=== PATIENT | male | born 1965 | race Caucasian/White ===

== ENCOUNTER 2019-04-30 14:10 | Outpatient (CLI) | payer BC ==
[~2019-04-30] VITALS: Ht 177.8 cm; Wt 83.9 kg
== END 2019-04-30 15:02 | disposition home or self-care (01) ==
LOC: PREOP 14:10
PROVIDERS: ATTEND Surgery
DX: Z01.818 Encounter for other preprocedural examination (principal)

== ENCOUNTER 2019-10-04 05:51 | Outpatient (CLI) | payer BC ==
[~2019-10-04] VITALS: Ht 172.7 cm; Wt 83.2 kg
[2019-10-07] MEDS ORDERED: ACHD5005 PO (09:30)
== END 2019-10-04 10:52 | disposition home or self-care (01) ==
LOC: PREOP 05:51
PROVIDERS: ATTEND Surgery
DX: Z01.818 Encounter for other preprocedural examination (principal)

== ENCOUNTER → 2021-05-11 | Outpatient (CLI) | payer BC ==
[~2021-05-11] MED LIST: ACHD5005 PO
[2021-05-11 13:48] LABS: ABSOLUTE RETIC # 60 10e9/uL (24-90); RETICULOCYTE % 1.37 % (0.50-2.40)
[2021-05-11 14:06] LABS: BAND NEUTROPHILS 0 %; BASOPHILS % (MANUAL) 3 %; EOSINOPHILS % (MANUAL) 2 %; LYMPHOCYTES % (MANUAL) 32 %; MONOCYTES % (MANUAL) 5 %; NEUTROPHILS % (MANUAL) 58 %; RBC MORPH NORMAL
== END ==
LOC: LABNPT 13:41
PROVIDERS: ATTEND Internal Medicine
DX: D72.819 Decreased white blood cell count, unspecified (principal)
CPT/HCPCS: 85007; 85045; 85055

== ENCOUNTER → 2021-08-29 | Outpatient (CLI) | payer BC ==
--- NOTE | 2021-08-29 15:56 | Diagnostic Imaging Report ---
Indication: Shortness of breath Comparison: 03/29/2014 Findings: Frontal and lateral views of the chest demonstrate clear lungs bilaterally. The heart is normal. There is no pneumothorax. Osseous structures normal. Impression: Negative chest Dictated by: Dictated on workstation # [id number]
== END ==
LOC: RAD 15:21
PROVIDERS: ATTEND Internal Medicine
DX: R06.00 Dyspnea, unspecified (principal); R06.02 Shortness of breath
CPT/HCPCS: 71046

== ENCOUNTER → 2021-09-05 | Outpatient (CLI) | payer BC ==
[~2021-09-05] MED LIST changes: +RT-ALBUTEROL SULF 2.5 MG/3 ML PRE-MIX VIAL INH ONE
== END ==
LOC: RT 09:15
PROVIDERS: ATTEND Internal Medicine
DX: G47.33 Obstructive sleep apnea (adult) (pediatric) (principal)
CPT/HCPCS: 94060; 94726; 94729

== ENCOUNTER 2023-01-04 16:47 | Inpatient (IN) | payer BC ==
[~2023-01-04] VITALS: Ht 175.3 cm; Wt 94.3 kg
[~2023-01-04 16:47] MED LIST changes: -RT-ALBUTEROL SULF 2.5 MG/3 ML PRE-MIX VIAL INH ONE
[2023-01-04] MEDS ORDERED: LACTATED RINGERS 1,000 ML IV ONE ×2 (17:00→18:00)
[2023-01-04 17:09] LABS: BASOPHILS # (AUTO) 0.1 10^3/uL (0.0-0.1); BASOPHILS % (AUTO) 1 % (0-10); EOSINOPHILS # (AUTO) 0.3 10^3/uL (0.0-0.3); EOSINOPHILS % (AUTO) 2 % (0-10); HEMATOCRIT 46 % (40-54); HEMOGLOBIN 15.9 g/dL (13.3-17.7); LYMPHOCYTES # (AUTO) 3.3 10^3/uL (1.0-4.0); LYMPHOCYTES % (AUTO) 23 % (12-44); MEAN CORPUSCULAR HEMOGLOBIN 29 pg (25-34); MEAN CORPUSCULAR HGB CONC 34 g/dL (32-36); MEAN CORPUSCULAR VOLUME 85 fL (80-99); MEAN PLATELET VOLUME 9.1 fL (9.0-12.2); MONOCYTES % (AUTO) 14 % (0-12); NEUTROPHILS # (AUTO) 8.2 10^3/uL (1.8-7.8); NEUTROPHILS % (AUTO) 59 % (42-75); PLATELET COUNT 298 10^3/uL (130-400)
[2023-01-04 17:20] LABS: ALBUMIN 4.2 GM/DL (3.2-4.5)
[2023-01-04 17:22] LABS: CALCIUM 9.3 MG/DL (8.5-10.1)
[2023-01-04 17:23] LABS: INR 1.1 (0.8-1.4); PROTHROMBIN TIME PATIENT 14.6 SEC (12.2-14.7); TOTAL PROTEIN 7.9 GM/DL (6.4-8.2)
[2023-01-04 17:25] LABS: BILIRUBIN,TOTAL 1.6 MG/DL (0.1-1.0)
[2023-01-04 17:27] LABS: CREATININE SERUM 1.33 MG/DL (0.60-1.30)
[2023-01-04] MEDS ORDERED: ONDANSETRON 4 MG/2 ML (SDV) Z0FRAN IVP ONE (17:30)
--- NOTE | 2023-01-04 17:58 | ED General ---
General Chief Complaint: Altered Mental Status Stated Complaint: HYPOGLYCEMIA Nursing Triage Note: PT TO ROOM BY [facility] FROM [facility]. PT STATES HE HAS BEEN SICK SINCE FRIDAY AND PT REPORTS INCREASED VOMITING AND ALTERED MENTAL STATUS STARTED TODAY. EMS REPORTS PT GLUCOSE AT [facility] WAS 59. PT HAS D10 RUNNING ON ARRIVAL. ARRIVAL GLUCOSE IS 134. PT IS A&OX3 ON ARRIVAL, SPEECH NORMAL Source of Information: Patient, EMS, Family Exam Limitations: Other (Clinical condition) (TREVER BUSH MD) History of Present Illness Date Seen by Provider: January 04, 2023 Time Seen by Provider: 16:48 Initial Comments This 57-year-old gentleman presents to the emergency room via EMS from the [facility] with concerns about altered mental status and tachycardia. Heart rate was noted to be in the 130s. Patient was confused. He has had vomiting and diarrhea for the past 3 to 4 days. He is afebrile. Blood sugar at the clinic was noted to be 59. On EMS arrival blood sugar was 89. A bag of D10 was hung by EMS. Blood sugar on arrival was 134. Patient is a poor historian at the time of my evaluation. His was not present yet. The majority of the history was obtained from EMS and from Cindy Diane NP at [facility]. His reportedly was trying to manage his symptoms at home but could not to lerate his symptoms and confusion. She intended to bring him to the ER but decided to stop at the walk-in clinic at [facility] along the way. He is not diabetic and does not take any glucose reducing medications. Nursing staff notes that patient is alert and oriented on their initial assessment. However, by my assessment he is not able to answer questions well and cognition seems very sluggish. He also has a rather profound systolic murmur on heart auscultation. Urine output has decreased significantly over the past couple of days. He reported sore throat to his . He has history of chronic anemia and takes levothyroxine. Patient denied any pain but he seemed to have difficulty articulating how he was feeling. (TREVER BUSH MD) Allergies and Home Medications Allergies Coded Allergies: No Known Drug Allergies (Unverified , 03/29/14) Patient Home Medication List Home Medication List Reviewed: Yes (TREVER BUSH MD) Hydrocodone Bit/Acetaminophen (Lortab 5 Mg Tablet) 1 Tab Tab, 1 TAB PO Q4-6HR Prescribed by: CLAUDIO RECIO on 10/07/19 6152 Review of Systems Review of Systems Constitutional: no symptoms reported EENTM: no symptoms reported Respiratory: no symptoms reported Cardiovascular: see HPI Gastrointestinal: see HPI Genitourinary: see HPI Musculoskeletal: no symptoms reported Skin: no symptoms reported Psychiatric/Neurological: See HPI Hematologic/Lymphatic: No Symptoms Reported Immunological/Allergic: no symptoms reported (TREVER BUSH MD) Past Dsncslx-Qobaaf-Chrzxn Hx Seasonal Allergies Seasonal Allergies: No (TREVER UBSH MD) Past Medical History Surgeries: Yes (undescended testicle) Respiratory: No Cardiac: No Neurological: No Genitourinary: No Gastrointestinal: No Musculoskeletal: No Endocrine: Yes Hypothyroidsim HEENT: No Cancer: No Psychosocial: No Integumentary: No Blood Disorders: No (TREVER BUSH MD) Physical Exam-Suspected Sepsis Physical Exam Vital Signs Vital Signs - First Documented 01/04/23 16:49 Temp 37.1 Pulse 125 Resp 25 B/P (MAP) 109/83 (92) Pulse Ox 96 (CHICA PHOENIX MD) Vital Signs Capillary Refill : (TREVER BUSH MD) Blood Pressure Mean: 92 Height, Weight, BMI Height: 5'10.00" Weight: 185lbs. 0.0oz. 83.466338vc; 30.00 BMI Method:Stated General Appearance: No Apparent Distress, WD/WN HEENT: PERRL/EOMI, Other (Mucous membranes dry) Neck: Normal Inspection Respiratory: Lungs Clear, Normal Breath Sounds, No Accessory Muscle Use Cardiovascular: No Edema, Systolic Murmur (Very loud systolic murmur), Tachycardia Gastrointestinal: Normal Bowel Sounds, Non Tender, Soft Extremity: Normal Inspection, No Pedal Edema Neurologic/Psychiatric: Alert, No Motor/Sensory Deficits, Other (Cognition dulled) Skin: normal color, warm/dry (TREVER BUSH MD) Focused Exam Lactate Level 01/04/23 16:54: Lactic Acid Level 2.88*H (CHICA PHOENIX MD) Lactic Acid Level Laboratory Tests Test 01/04/23 16:54 Lactic Acid Level 2.88 MMOL/L (0.50-2.00) *H (CHICA PHOENIX MD) Progress/Results/Core Measures Suspected Sepsis SIRS Temperature: Pulse: 125 Respiratory Rate: 25 Laboratory Tests 01/04/23 16:54: White Blood Count 14.0H Blood Pressure 109 /83 Mean: 92 01/04/23 16:54: Lactic Acid Level 2.88*H Laboratory Tests 01/04/23 16:54: Creatinine 1.33H, INR Comment 1.1, Platelet Count 298, Total Bilirubin 1.6H (TREVER BUSH MD) Results/Orders Lab Results Laboratory Tests Test 01/04/23 16:54 01/04/23 16:56 01/04/23 17:16 01/04/23 18:12 Range/Units White Blood Count 14.0 H 4.3-11.0 10^3/uL Red Blood Count 5.47 4.30-5.52 10^6/uL Hemoglobin 15.9 13.3-17.7 g/dL Hematocrit 46 40-54 % Mean Corpuscular Volume 85 80-99 fL Mean Corpuscular Hemoglobin 29 25-34 pg Mean Corpuscular Hemoglobin Concent 34 32-36 g/dL Red Cell Distribution Width 12.5 10.0-14.5 % Platelet Count 298 130-400 10^3/uL Mean Platelet Volume 9.1 9.0-12.2 fL Immature Granulocyte % (Auto) 1 % Neutrophils (%) (Auto) 59 42-75 % Lymphocytes (%) (Auto) 23 12-44 % Monocytes (%) (Auto) 14 H 0-12 % Eosinophils (%) (Auto) 2 0-10 % Basophils (%) (Auto) 1 0-10 % Neutrophils # (Auto) 8.2 H 1.8-7.8 10^3/uL Lymphocytes # (Auto) 3.3 1.0-4.0 10^3/uL Monocytes # (Auto) 2.0 H 0.0-1.0 10^3/uL Eosinophils # (Auto) 0.3 0.0-0.3 10^3/uL Basophils # (Auto) 0.1 0.0-0.1 10^3/uL Immature Granulocyte # (Auto) 0.1 0.0-0.1 10^3/uL Prothrombin Time 14.6 12.2-14.7 SEC INR Comment 1.1 0.8-1.4 Activated Partial Thromboplast Time 36 H 24-35 SEC Sodium Level 134 L 135-145 MMOL/L Potassium Level 4.0 3.6-5.0 MMOL/L Chloride Level 98 98-107 MMOL/L Carbon Dioxide Level 17 L 21-32 MMOL/L Anion Gap 19 H 5-14 MMOL/L Blood Urea Nitrogen 14 7-18 MG/DL Creatinine 1.33 H 0.60-1.30 MG/DL Estimat Glomerular Filtration Rate 63 BUN/Creatinine Ratio 11 Glucose Level 134 H 70-105 MG/DL Lactic Acid Level 2.88 *H 0.50-2.00 MMOL/L Calcium Level 9.3 8.5-10.1 MG/DL Corrected Calcium 9.1 8.5-10.1 MG/DL Magnesium Level 2.0 1.6-2.4 MG/DL Total Bilirubin 1.6 H 0.1-1.0 MG/DL Aspartate Amino Transf (AST/SGOT) 21 5-34 U/L Alanine Aminotransferase (ALT/SGPT) 14 0-55 U/L Alkaline Phosphatase 76 40-136 U/L Troponin I 0.557 *H <0.028 NG/ML C-Reactive Protein High Sensitivity 23.90 H 0.00-0.50 MG/DL B-Type Natriuretic Peptide 82.7 <100.0 PG/ML Total Protein 7.9 6.4-8.2 GM/DL Albumin 4.2 3.2-4.5 GM/DL Thyroid Stimulating Hormone (TSH) 0.00 L 0.35-4.94 UIU/ML Free Thyroxine 1.19 0.70-1.48 NG/DL Serum Alcohol < 10 <10 MG/DL Glucometer 134 H 70-110 MG/DL Group A Streptococcus Screen NEGATIVE NEGATIVE Influenza Type A (RT-PCR) Not Detected Not Detecte Influenza Type B (RT-PCR) Not Detected Not Detecte SARS-CoV-2 RNA (RT-PCR) Not Detected Not Detecte Test 01/04/23 19:06 Range/Units Urine Color YELLOW Urine Clarity CLEAR Urine pH 6.0 5-9 Urine Specific [employer] >=1.030 1.016-1.022 Urine Protein 2+ H NEGATIVE Urine Glucose (UA) NEGATIVE NEGATIVE Urine Ketones 3+ H NEGATIVE Urine Nitrite NEGATIVE NEGATIVE Urine Bilirubin 2+ H NEGATIVE Urine Urobilinogen 1.0 < = 1.0 MG/DL Urine Leukocyte Esterase NEGATIVE NEGATIVE Urine RBC (Auto) 3+ H NEGATIVE Urine RBC 10-25 H /HPF Urine WBC RARE /HPF Urine Squamous Epithelial Cells NONE /HPF Urine Crystals PRESENT H /LPF Urine Amorphous Sediment FEW JUAN LUIS URATES H /LPF Urine Bacteria FEW H /HPF Urine Casts PRESENT /LPF Urine Hyaline Casts 5-10 H /LPF Urine Mucus MODERATE H /LPF Urine Culture Indicated CULTURE PENDING Urine Opiates Screen NEGATIVE NEGATIVE Urine Oxycodone Screen NEGATIVE NEGATIVE Urine Methadone Screen NEGATIVE NEGATIVE Urine Propoxyphene Screen NEGATIVE NEGATIVE Urine Barbiturates Screen NEGATIVE NEGATIVE Ur Tricyclic Antidepressants Screen NEGATIVE NEGATIVE Urine Phencyclidine Screen NEGATIVE NEGATIVE Urine Amphetamines Screen NEGATIVE NEGATIVE Urine Methamphetamines Screen NEGATIVE NEGATIVE Urine Benzodiazepines Screen NEGATIVE NEGATIVE Urine Cocaine Screen NEGATIVE NEGATIVE Urine Cannabinoids Screen NEGATIVE NEGATIVE (CHICA PHOENIX MD) My Orders Orders - CHICA PHOENIX MD Bnp [place] (01/04/23 18:30) Troponin I Diomedes (01/04/23 18:30) Ct Head Wo (01/04/23 18:47) Catheter(Urinary) Insert & Ass 03,15 (01/04/23 18:47) Lidocaine 2% (Urojet) (Xylocaine Urojet) (01/04/23 19:00) Ekg Tracing (01/04/23 19:01) Monitor-Rhythm Ecg Trace Only (01/04/23 19:01) Aspirin Chewable Tablet (Baby Aspirin Ch (01/04/23 19:15) Aspirin Chewable Tablet (Baby Aspirin Ch (01/04/23 19:07) Enoxaparin Injection (Lovenox Injection) (01/04/23 19:15) (CHICA PHOENIX MD) Medications Given in ED Current Medications Medications Dose Ordered Sig/Kaila Route Start Time Stop Time Status Last Admin Dose Admin Aspirin 324 mg ONCE ONCE PO 01/04/23 19:15 01/04/23 19:16 DC 01/04/23 19:10 324 MG Enoxaparin Sodium 90 mg ONCE ONCE SC 01/04/23 19:15 01/04/23 19:16 DC 01/04/23 19:36 90 MG Lactated Ringer's 1,000 ml @ 0 mls/hr Q0M ONCE IV 01/04/23 17:00 01/04/23 17:01 DC 01/04/23 17:32 999 MLS/HR Lactated Ringer's 1,000 ml @ 0 mls/hr Q0M ONCE IV 01/04/23 18:00 01/04/23 18:01 DC 01/04/23 18:28 999 MLS/HR Lidocaine HCl 10 ml ONCE ONCE TOP 01/04/23 19:00 01/04/23 19:01 DC 01/04/23 19:05 10 ML Ondansetron HCl 4 mg ONCE ONCE IVP 01/04/23 17:30 01/04/23 17:31 DC 01/04/23 17:31 4 MG (CHICA PHOENIX MD) Vital Signs/I&O 01/04/23 16:49 Temp 37.1 Pulse 125 Resp 25 B/P (MAP) 109/83 (92) Pulse Ox 96 (HCICA PHOENIX MD) Vital Signs/I&O Capillary Refill : (TREVER BUSH MD) Blood Pressure Mean: 92 Point of Care Testing Finger Stick Blood Glucose: 134 Blood Glucose Action Taken: DR NOTIFIED (TREVER BUSH MD) Progress Note : Time: 18:06 Progress Note Report was taken from EMS and patient was interviewed and examined. I received report from Kiersten Diane NP from the clinic. On arrival patient was found to be tachycardic. He was alert but seemed confused. A bag of D10 was infusing as initiated by EMS. We are hydrating with LR. Septic work-up is being pursued. Labs have been reviewed and interpreted by me. CBC was remarkable for leukocytosis of 14. CRP was markedly elevated at 24. CO2 was low at 17. Lact ic acid was elevated at 2.88. Influenza and COVID-19 swabs are pending. Rapid strep was negative. Thyroid studies are pending. Zofran was given for nausea. Care of this patient is being transitioned to Dr. Phoenix at this time. (TREVER BUSH MD) Progress Note : Progress Note Labs have come back, troponin is elevated at 0.55, EKG ordered and ordered and interpreted by me showing sinus tachycardia with no acute ischemic changes, normal BNP, urinalysis with blood, it was likely traumatic specimen as a Kowalski needed to be placed within retaining. Chest x-ray with no acute abnormalities. CT head, interpretation with no acute bleed. I contacted Dr. Belcher and discussed the patient's case. The patient was given full dose aspirin as well as Lovenox per his direction. The patient will require an echocardiogram. I then contacted Dr. Rapp who will admit him to the cardiac stepdown for further evaluation and management. (CHICA PHOENIX MD) ECG Initial ECG Impression Date: January 04, 2023 Initial ECG Impression Time: 19:10 Initial ECG Rate: 114 Initial ECG Rhythm: S.Tach Comment Narrow QRS, normal axis, no significant ST changes or T wave inversions (CHIAC PHOENIX MD) Diagnostic Imaging Diagonstic Imaging: Xray Plain Films/CT/US/NM/MRI: chest Comments Chest x-ray viewed by me. No acute abnormalities by my interpretation. Radiologist interpretation is pending. (TREVER BUSH MD) Comments [facility] [place], [place] NAME: SELVIN STEWART [facility] REC#: [id number] PT STATUS: REG ER : 1965 PHYSICIAN: TREVER BUSH MD ADMIT DATE: 01/04/23/ER Draft Date of Exam:01/04/23 CHEST 1 VIEW, AP/PA ONLY INDICATION: Tachycardia . COMPARISON: 08/29/2021. FINDINGS: Single frontal view of the chest demonstrates normal heart size and pulmonary vascularity. The lungs are well aerated and clear. No large pleural effusion or pneumothorax is seen. The visualized osseous structures show no acute abnormality. IMPRESSION: No acute cardiopulmonary process. Dictated on workstation # [id number] Dict: 01/04/231809 Trans: 01/04/231817 [facility] [id number] Interpreted by: ARELI GANDHI MD Electronically signed by: NAME: SELVIN STEWART [employer] REC#: [id number] PT STATUS: REG ER : 1965 PHYSICIAN: CHICA PHOENIX MD ADMIT DATE: 01/04/23/ER Draft Date of Exam:01/04/23 CT HEAD WO PROCEDURE: CT head without contrast. TECHNIQUE: Multiple contiguous axial images were obtained through the brain without the use of intravenous contrast. Auto Exposure Controls were utilized during the CT exam to meet ALARA standards for radiation dose reduction. INDICATION: Altered mental status, confusion, prior pituitary adenoma removed. COMPARISON: None available. FINDINGS: No intracranial hemorrhage. Mild cerebral atrophy with moderate cerebellar atrophy. The sella is expanded. The majority of the sella is filled with CSF density fluid. However, densities are noted along the bilateral lateral margins of the sella. No significant adjacent mass effect. No midline shift, uncal herniation, obstructive hydrocephalus or suspicious extra-axial fluid collection. No CT evidence of an acute ischemic infarction. The orbits are unremarkable. Moderate mucosal thickening and fluid within scattered ethmoidal air cells. Mucosal thickening and fluid within the sphenoid sinuses. Moderate mucosal thickening and fluid within the left maxillary sinus. The mastoid air cells and middle ear cavities are clear. The calvarium is intact. IMPRESSION: Mild cerebral atrophy with moderate cerebellar atrophy. Postsurgical changes involving the sella with expansion of the sella. Soft tissue along the lateral margins of the sella may relate to residual tumor versus the vasculature within the cavernous sinuses. Significant paranasal sinus disease, as above. Given some layering fluid, acute sinusitis should be considered. Dictated on workstation # [id number] Dict: 01/04/231923 Trans: 01/04/231932 [facility] [id number] Interpreted by: SEGUNDO LYNN MD Electronically signed by: (CHICA PHOENIX MD) Departure Impression Primary Impression: NSTEMI (non-ST elevated myocardial infarction) Additional Impressions: AMS (altered mental status) Qualified Codes: R41.0 - Disorientation, unspecified Systolic murmur Disposition: ADMITTED INPATIENT Condition: Stable Admissions Decision to Admit Reason: Admit from ER (General) Decision to Admit/Date: January 04, 2023 Time/Decision to Admit Time: 19:15 (CHICA PHOENIX MD) Departure-Patient Inst. Referrals: ELIAN MAHMOOD MD (PCP/Family) Primary Care Physician TREVER BUSH MD January 04, 2023 17:58 CHICA PHOENIX MD January 04, 2023 18:28
--- NOTE | 2023-01-04 18:18 | Diagnostic Imaging Report ---
INDICATION: Tachycardia . COMPARISON: 08/29/2021. FINDINGS: Single frontal view of the chest demonstrates normal heart size and pulmonary vascularity. The lungs are well aerated and clear. No large pleural effusion or pneumothorax is seen. The visualized osseous structures show no acute abnormality. IMPRESSION: No acute cardiopulmonary process. Dictated by: Dictated on workstation # [id number]
[2023-01-04 18:38] LABS: FREE T4 (FREE THYROXINE) 1.19 NG/DL (0.70-1.48)
[2023-01-04] MEDS ORDERED: LIDOCAINE UROJET 2% GEL 10 ML PKG TOP ONE (19:00)
[2023-01-04] MEDS ORDERED: ASPIRIN 81 MG CHEW (CHILDREN'S ASA) ONE (19:07)
[2023-01-04 19:13] LABS: BILIRUBIN,URINE 2+ (NEGATIVE); CLARITY,URINE CLEAR; COLOR,URINE YELLOW; GLUCOSE, URINE (UA) NEGATIVE (NEGATIVE); KETONES,URINE 3+ (NEGATIVE); LEUKOCYTE ESTERASE ,URINE NEGATIVE (NEGATIVE); NITRITE,URINE NEGATIVE (NEGATIVE); PROTEIN,URINE 2+ (NEGATIVE)
[2023-01-04] MEDS ORDERED: ASPIRIN 81 MG CHEW (CHILDREN'S ASA) PO ONE (19:15)
[2023-01-04] MEDS ORDERED: ENOXAPARIN 100 MG/1 ML (LOVENOX) SYR SC ONE (19:15)
[2023-01-04 19:29] LABS: AMORPHOUS SEDIMENT,UR FEW AMOR URATES /LPF; BACTERIA,URINE FEW /HPF; WBC,URINE RARE /HPF
[2023-01-04 19:31] LABS: AMPHETAMINE SCREEN, URINE NEGATIVE (NEGATIVE); BARBITURATE SCREEN URINE NEGATIVE (NEGATIVE); BENZODIAZEPINES SCREEN URINE NEGATIVE (NEGATIVE); CANNABINOID SCREEN, URINE NEGATIVE (NEGATIVE); COCAINE SCREEN URINE NEGATIVE (NEGATIVE); METHADONE STAT NEGATIVE (NEGATIVE); OPIATE SCREEN URINE NEGATIVE (NEGATIVE); OXYCODONE STAT NEGATIVE (NEGATIVE); PROPOXYPHENE STAT NEGATIVE (NEGATIVE); TRICYCLIC ANTIDEPRESSANTS SCRE NEGATIVE (NEGATIVE)
--- NOTE | 2023-01-04 19:33 | Diagnostic Imaging Report ---
PROCEDURE: CT head without contrast. TECHNIQUE: Multiple contiguous axial images were obtained through the brain without the use of intravenous contrast. Auto Exposure Controls were utilized during the CT exam to meet ALARA standards for radiation dose reduction. INDICATION: Altered mental status, confusion, prior pituitary adenoma removed. COMPARISON: None available. FINDINGS: No intracranial hemorrhage. Mild cerebral atrophy with moderate cerebellar atrophy. The sella is expanded. The majority of the sella is filled with CSF density fluid. However, densities are noted along the bilateral lateral margins of the sella. No significant adjacent mass effect. No midline shift, uncal herniation, obstructive hydrocephalus or suspicious extra-axial fluid collection. No CT evidence of an acute ischemic infarction. The orbits are unremarkable. Moderate mucosal thickening and fluid within scattered ethmoidal air cells. Mucosal thickening and fluid within the sphenoid sinuses. Moderate mucosal thickening and fluid within the left maxillary sinus. The mastoid air cells and middle ear cavities are clear. The calvarium is intact. IMPRESSION: Mild cerebral atrophy with moderate cerebellar atrophy. Postsurgical changes involving the sella with expansion of the sella. Soft tissue along the lateral margins of the sella may relate to residual tumor versus the vasculature within the cavernous sinuses. Significant paranasal sinus disease, as above. Given some layering fluid, acute sinusitis should be considered. Dictated by: Dictated on workstation # [id number]
[2023-01-04 20:53] VITALS: BP 119/82
[2023-01-04] MEDS ORDERED: ACETAMINOPHEN 500 MG TAB (TYLENOL) PO PRN (21:15)
[2023-01-04] MEDS ORDERED: ONDANSETRON 4 MG/2 ML (SDV) Z0FRAN IV PRN (21:15)
[2023-01-04 21:39] VITALS: BP 109/83
[2023-01-04] MEDS ORDERED: RT-ALBUTEROL SULF 2.5 MG/3 ML PRE-MIX VIAL INH PRN (22:00)
[2023-01-04] MEDS: CATHETER FLUSH 10 ML SYR IVP SCH (22:13)
[2023-01-04 23:00] VITALS: BP 102/80
[2023-01-05] VITALS (12 sets, daily range): BP systolic 101–122; BP diastolic 73–94
[2023-01-05 05:17] LABS: POTASSIUM 3.8 MMOL/L (3.6-5.0)
[2023-01-05 05:18] LABS: CALCIUM 8.8 MG/DL (8.5-10.1)
[2023-01-05 05:23] LABS: CREATININE SERUM 0.86 MG/DL (0.60-1.30)
[2023-01-05] MEDS: ENOXAPARIN 100 MG/1 ML (LOVENOX) SYR SC SCH ×2 (06:30→19:47)
[2023-01-05] MEDS: LEVOTHYROXINE 125 MCG (LEVOTHROID) TABLET PO SCH (06:30)
[2023-01-05] MEDS: CATHETER FLUSH 10 ML SYR IVP SCH ×3 (06:30→19:48)
--- NOTE | 2023-01-05 08:33 | Consultation-Cardiology ---
HPI-Cardiology Cardiology Consultation Date of Consultation 01/05/23 Date of Admission Time Seen by Provider: 08:27 Indication: Non-ST elevation myocardial infarction HPI 57-year-old gentleman with history of pituitary tumor, history of resection of the tumor done 2 years ago at . Hypothyroidism maintained on thyroid and prednisone. He became confused yesterday. Brought to the emergency room for evaluation he was noted to have elevation in troponin level. He denied any chest pain, no shortness of breath, his mental status is back to baseline. Incidentally he was noted to have systolic murmur Home Medications & Allergies Allergies: Coded Allergies: No Known Drug Allergies (Unverified , 03/29/14) Home Medication List Reviewed: Yes AEG-Uvwciv-Hianoq Hx Patient Social History Marital Status: Employed/Student: employed Smoking Status: Never a Smoker Recent Hopitalizations: No Have you traveled recently?: No Alcohol Use?: No Past Medical History Discussed below Family Medical History Significant Family History: No Pertinent Family Hx Review of Systems-General Review of Systems Constitutional: no symptoms reported EENTM: no symptoms reported Respiratory: no symptoms reported Cardiovascular: see HPI Gastrointestinal: see HPI Genitourinary: see HPI Musculoskeletal: no symptoms reported Skin: no symptoms reported Psychiatric/Neurological: See HPI Reviewed Test Results Reviewed Test Results Lab Laboratory Tests Test 01/04/23 16:54 01/04/23 16:56 01/04/23 17:16 01/04/23 18:12 Range/Units White Blood Count 14.0 H 4.3-11.0 10^3/uL Red Blood Count 5.47 4.30-5.52 10^6/uL Hemoglobin 15.9 13.3-17.7 g/dL Hematocrit 46 40-54 % Mean Corpuscular Volume 85 80-99 fL Mean Corpuscular Hemoglobin 29 25-34 pg Mean Corpuscular Hemoglobin Concent 34 32-36 g/dL Red Cell Distribution Width 12.5 10.0-14.5 % Platelet Count 298 130-400 10^3/uL Mean Platelet Volume 9.1 9.0-12.2 fL Immature Granulocyte % (Auto) 1 % Neutrophils (%) (Auto) 59 42-75 % Lymphocytes (%) (Auto) 23 12-44 % Monocytes (%) (Auto) 14 H 0-12 % Eosinophils (%) (Auto) 2 0-10 % Basophils (%) (Auto) 1 0-10 % Neutrophils # (Auto) 8.2 H 1.8-7.8 10^3/uL Lymphocytes # (Auto) 3.3 1.0-4.0 10^3/uL Monocytes # (Auto) 2.0 H 0.0-1.0 10^3/uL Eosinophils # (Auto) 0.3 0.0-0.3 10^3/uL Basophils # (Auto) 0.1 0.0-0.1 10^3/uL Immature Granulocyte # (Auto) 0.1 0.0-0.1 10^3/uL Prothrombin Time 14.6 12.2-14.7 SEC INR Comment 1.1 0.8-1.4 Activated Partial Thromboplast Time 36 H 24-35 SEC Sodium Level 134 L 135-145 MMOL/L Potassium Level 4.0 3.6-5.0 MMOL/L Chloride Level 98 98-107 MMOL/L Carbon Dioxide Level 17 L 21-32 MMOL/L Anion Gap 19 H 5-14 MMOL/L Blood Urea Nitrogen 14 7-18 MG/DL Creatinine 1.33 H 0.60-1.30 MG/DL Estimat Glomerular Filtration Rate 63 BUN/Creatinine Ratio 11 Glucose Level 134 H 70-105 MG/DL Lactic Acid Level 2.88 *H 0.50-2.00 MMOL/L Calcium Level 9.3 8.5-10.1 MG/DL Corrected Calcium 9.1 8.5-10.1 MG/DL Magnesium Level 2.0 1.6-2.4 MG/DL Total Bilirubin 1.6 H 0.1-1.0 MG/DL Aspartate Amino Transf (AST/SGOT) 21 5-34 U/L Alanine Aminotransferase (ALT/SGPT) 14 0-55 U/L Alkaline Phosphatase 76 40-136 U/L Troponin I 0.557 *H <0.028 NG/ML C-Reactive Protein High Sensitivity 23.90 H 0.00-0.50 MG/DL B-Type Natriuretic Peptide 82.7 <100.0 PG/ML Total Protein 7.9 6.4-8.2 GM/DL Albumin 4.2 3.2-4.5 GM/DL Thyroid Stimulating Hormone (TSH) 0.00 L 0.35-4.94 UIU/ML Free Thyroxine 1.19 0.70-1.48 NG/DL Serum Alcohol < 10 <10 MG/DL Glucometer 134 H 70-110 MG/DL Group A Streptococcus Screen NEGATIVE NEGATIVE Influenza Type A (RT-PCR) Not Detected Not Detecte Influenza Type B (RT-PCR) Not Detected Not Detecte SARS-CoV-2 RNA (RT-PCR) Not Detected Not Detecte Test 01/04/23 19:06 01/04/23 20:03 01/05/23 04:45 01/05/23 07:28 Range/Units Urine Color YELLOW Urine Clarity CLEAR Urine pH 6.0 5-9 Urine Specific [place] >=1.030 1.016-1.022 Urine Protein 2+ H NEGATIVE Urine Glucose (UA) NEGATIVE NEGATIVE Urine Ketones 3+ H NEGATIVE Urine Nitrite NEGATIVE NEGATIVE Urine Bilirubin 2+ H NEGATIVE Urine Urobilinogen 1.0 < = 1.0 MG/DL Urine Leukocyte Esterase NEGATIVE NEGATIVE Urine RBC (Auto) 3+ H NEGATIVE Urine RBC 10-25 H /HPF Urine WBC RARE /HPF Urine Squamous Epithelial Cells NONE /HPF Urine Crystals PRESENT H /LPF Urine Amorphous Sediment FEW JUAN LUIS URATES H /LPF Urine Bacteria FEW H /HPF Urine Casts PRESENT /LPF Urine Hyaline Casts 5-10 H /LPF Urine Mucus MODERATE H /LPF Urine Culture Indicated CULTURE PENDING Urine Opiates Screen NEGATIVE NEGATIVE Urine Oxycodone Screen NEGATIVE NEGATIVE Urine Methadone Screen NEGATIVE NEGATIVE Urine Propoxyphene Screen NEGATIVE NEGATIVE Urine Barbiturates Screen NEGATIVE NEGATIVE Ur Tricyclic Antidepressants Screen NEGATIVE NEGATIVE Urine Phencyclidine Screen NEGATIVE NEGATIVE Urine Amphetamines Screen NEGATIVE NEGATIVE Urine Methamphetamines Screen NEGATIVE NEGATIVE Urine Benzodiazepines Screen NEGATIVE NEGATIVE Urine Cocaine Screen NEGATIVE NEGATIVE Urine Cannabinoids Screen NEGATIVE NEGATIVE Lactic Acid Level 1.95 0.50-2.00 MMOL/L Sodium Level 135 135-145 MMOL/L Potassium Level 3.8 3.6-5.0 MMOL/L Chloride Level 105 98-107 MMOL/L Carbon Dioxide Level 15 L 21-32 MMOL/L Anion Gap 15 H 5-14 MMOL/L Blood Urea Nitrogen 12 7-18 MG/DL Creatinine 0.86 0.60-1.30 MG/DL Estimat Glomerular Filtration Rate 102 BUN/Creatinine Ratio 14 Glucose Level 86 70-105 MG/DL Calcium Level 8.8 8.5-10.1 MG/DL Troponin I 0.699 *H <0.028 NG/ML Physical Exam Physical Exam Vital Signs Vital Signs - First Documented 01/04/23 01/04/23 01/04/23 16:49 20:53 21:39 Temp 37.1 Pulse 125 Resp 25 B/P (MAP) 109/83 (92) Pulse Ox 96 O2 Delivery Room Air FiO2 21 Capillary Refill : Height, Weight, BMI Height: 5'10.00" Weight: 185lbs. 0.0oz. 83.324602ia; 30.88 BMI Method:Stated General Appearance: No Apparent Distress, WD/WN HEENT: PERRL/EOMI, Other Neck: Normal Inspection Respiratory: Lungs Clear, Normal Breath Sounds, No Accessory Muscle Use Cardiovascular: No Edema, Systolic Murmur, Tachycardia Gastrointestinal: Normal Bowel Sounds, Non Tender, Soft Extremity: Normal Inspection, No Pedal Edema Neurologic/Psychiatric: Alert, No Motor/Sensory Deficits, Other A/P-Cardiology Admission Diagnosis Non-ST elevation myocardial infarction Coronary artery disease Sinus tachycardia Pituitary tumor Assessment/Plan Non-ST elevation myocardial infarction, no acute EKG changes, persistent elevation in troponin trending upward. I am planning to proceed with cardiac catheterization possible PTCA Sinus tachycardia, could be underlying sepsis I am planning to evaluate CT angiogram of the chest Systolic murmur on the left sternal border, no previous cardiac history. I will evaluate 2D echo Lactic acidosis, questionable underlying sepsis. Managed by medical team Change in mental status, confusion. Patient does not recall the event well. Currently back to baseline History of pituitary tumor, had resection done 2 years ago at . Maintained on prednisone History of hypothyroidism, maintained on thyroid replacement ALBERTO TOUSSAINT MD January 05, 2023 08:33
[2023-01-05] MEDS: NS IV 1000 ML 1,000 ML IV SCH ×5 (08:40→21:31)
[2023-01-05] MEDS ORDERED: LIDOCAINE 1% INJ 20 ML VIAL ONE (08:45)
[2023-01-05] MEDS ORDERED: HEParin (CATH LAB) 2,000 ML IV ONE (08:46)
[2023-01-05] MEDS ORDERED: NS IV 1000 ML 0 ML ONE (08:46)
--- NOTE | 2023-01-05 08:49 | Cardiac Procedure Note-CS/ASA ---
Pre-Procedure Note Pre-Op Procedure Note Date of Available H&P: January 05, 2023 Date H&P Reviewed: January 05, 2023 Time H&P Reviewed: 08:49 History & Physical: H&P Reviewed, Patient Examed, No changes noted Pre-Operative Diagnosis: NSTMI Moderate Sedation PreProcedure Time 08:49 ASA Score 3 Airway Lungs Heart ASA score ASA 1: a normal healthy patient ASA 2: a patient with a mild systemic disease (mid diabetes, controlled hypertension, obesity ASA 3: a patient with a severe systemic disease that limits activity (angina, COPD, prior Myocardial infarction) ASA 4: a patient with an incapacitating disease that is a constant threat to life (CHF, renal failure) ASA 5: a moribund patient not expected to survive 24 hrs. (ruptured aneurysm) ASA 6: a declared brain- patient whose organs are being harvested. For emergent operations, add the letter E after the classification Mallampati Classification Grade 3 Sedation Plan Analgesia, Amnesia, Plan communicated to team members, Discussed options with patient/fam, Discussed risks with patient/fam The patient is an appropriate candidate to undergo the planned procedure, sedation, and anesthesia. The patient immediately re-assessed prior to indication. ALBERTO TOUSSAINT MD January 05, 2023 08:49
[2023-01-05] MEDS ORDERED: HEParin 1000 UNIT/ML (10ML VIAL) FOR BOLUS ONE (08:55)
[2023-01-05] MEDS ORDERED: NITRO DRIP 25000 MCG/D5W 250 ML IV ONE (08:55)
[2023-01-05] MEDS ORDERED: fentaNYL INJ 100 MCG/2 ML AMP ONE (08:55)
[2023-01-05] MEDS ORDERED: MIDAZOLAM 5 MG/5 ML (VERSED) VIAL ONE (08:55)
[2023-01-05] MEDS ORDERED: VERAPAMIL 5 MG/2 ML (CALAN) VIAL IV ONE (08:55)
[2023-01-05] MEDS: ASPIRIN E.C. 81 MG (ECOTRIN) TAB PO SCH ×2 (09:01→11:05)
--- NOTE | 2023-01-05 09:23 | History & Physical-Hospitalist ---
History of Present Illness HPI/Chief Complaint Patient is a 57-year-old male with past medical history of pituitary adenoma status postresection and secondary hypothyroidism who presented to the emergency department due to altered mental status vomiting and murmur. His gives most of the history and states that his symptoms started roughly 3 days ago when he complained of a sore throat and he ended up staying home from work on the because of this. He stayed home again from work on the and his reports that this is very abnormal for him because he has important meetings on Fridays that he almost never misses and this was a Friday. Yesterday he continued to worsen and had poor oral intake and she noticed decreased urinary output as well. She wanted to bring him to the emergency department but he asked to be seen in a walk-in clinic so she went to [facility] for evaluation. She went in to get him checked in and when they came back to get him with a wheelchair he had vomited all over himself. They deny any fever or vomiting prior to that. The nurse practitioner at [facility] listened to him and noticed a systolic murmur which they report is new. He was sent to the emergency department for evaluation. He was also found to be hypoglycemic with a blood sugar of 59. EMS gave him dextrose in route. In the emergency room he remained slow to answer though was oriented to most things. He was found to have an elevated troponin of 0.557 and exam again revealed this new systolic murmur. He was admitted for cardiac evaluation. He was found as well to have an LANETTE and lactic acidosis presumably from dehydration. He was given IV fluids overnight. This morning he reports feeling much better and though not back to his baseline very close to it. He states he is mostly just tired today. He is going to [facility] for further cardiac evaluation. Source: patient, family Date Seen 01/05/23 Time Seen by a Provider: 09:22 Attending Physician Caleb Dai MD PCP Admitting Physician: Ken Pathak MD Attending Physician: Ken Pathak MD Referring Physician Date of Admission January 04, 2023 at 20:48 Home Medications & Allergies Home Medications Reviewed patient Home Medication Reconciliation performed by pharmacy medication reconciliations optomechanical technician and/or nursing. Patients Allergies have been reviewed. Allergies Allergies Coded Allergies No Known Drug Allergies (Unverified03/29/14) Past Lfcnsny-Zttyhb-Gytwif Hx Patient Social History Marrital Status: Employed/Student: employed Tobacco Use?: No Smoking Status: Never a Smoker Smokeless Tobacco Frequency: Never a User Use of E-Cig and/or Vaping dev: No Substance use?: No Alcohol Use?: No Pt feels they are or have been: No Immunizations Up To Date Tetanus Booster (TDap): Less Than 5 Years Hepatitis A: No Hepatitis B: No Seasonal Allergies Seasonal Allergies: No Current Status Advance Directives: No Communicates: Verbally Primary Language: Pashto Preferred Spoken Language: Pashto Is interpretation needed?: No Sensory deficits: Vision impairment Implanted or Applied Medical D: None Past Medical History Hypothyroidsim Blood Disorders: No Family Medical History No Pertinent Family Hx Review of Systems Constitutional: see HPI Physical Exam Physical Exam Vital Signs Vital Signs - First Documented 01/04/23 01/04/23 01/04/23 01/05/23 16:49 20:53 21:39 09:27 Temp 37.1 Pulse 125 Resp 25 B/P (MAP) 109/83 (92) Pulse Ox 96 O2 Delivery Room Air O2 Flow Rate 0.00 FiO2 21 Capillary Refill : Height, Weight, BMI Height: 5'10.00" Weight: 185lbs. 0.0oz. 83.685621rs; 30.88 BMI Method:Stated General Appearance: No Apparent Distress, WD/WN Respiratory: Lungs Clear, No Accessory Muscle Use, No Respiratory Distress Cardiovascular: Normal Peripheral Pulses, Systolic Murmur, Tachycardia Gastrointestinal: Normal Bowel Sounds, Non Tender, Soft Extremity: Normal Capillary Refill, No Calf Tenderness Neurologic/Psychiatric: Alert, Oriented x3 (oriented to major details- defers to family for details regarding HPI) Results Results/Procedures Labs Laboratory Tests 01/04/23 16:54 01/05/23 04:45 Patient resulted labs reviewed. Imaging: Reviewed Imaging Report Imaging [facility], [place] NAME: SELVIN STEWART [facility] REC#: [id number] PT STATUS: REG ER : 1965 PHYSICIAN: TREVER BUSH MD ADMIT DATE: 01/04/23/ER Signed Date of Exam:01/04/23 CHEST 1 VIEW, AP/PA ONLY INDICATION: Tachycardia . COMPARISON: 08/29/2021. FINDINGS: Single frontal view of the chest demonstrates normal heart size and pulmonary vascularity. The lungs are well aerated and clear. No large pleural effusion or pneumothorax is seen. The visualized osseous structures show no acute abnormality. IMPRESSION: No acute cardiopulmonary process. Dictated by: Dictated on workstation # [id number] Dict: 01/04/231809 Trans: 01/04/231944 [facility] [id number] Interpreted by: ARELI GANDHI MD Electronically signed by: ARELI GANDHI MD 01/04/231944 [facility], [place] NAME: SELVIN STEWART [facility] REC#: [id number] PT STATUS: REG ER : 1965 PHYSICIAN: CHICA PHOENIX MD ADMIT DATE: 01/04/23/ER Signed Date of Exam:01/04/23 CT HEAD WO PROCEDURE: CT head without contrast. TECHNIQUE: Multiple contiguous axial images were obtained through the brain without the use of intravenous contrast. Auto Exposure Controls were utilized during the CT exam to meet ALARA standards for radiation dose reduction. INDICATION: Altered mental status, confusion, prior pituitary adenoma removed. COMPARISON: None available. FINDINGS: No intracranial hemorrhage. Mild cerebral atrophy with moderate cerebellar atrophy. The sella is expanded. The majority of the sella is filled with CSF density fluid. However, densities are noted along the bilateral lateral margins of the sella. No significant adjacent mass effect. No midline shift, uncal herniation, obstructive hydrocephalus or suspicious extra-axial fluid collection. No CT evidence of an acute ischemic infarction. The orbits are unremarkable. Moderate mucosal thickening and fluid within scattered ethmoidal air cells. Mucosal thickening and fluid within the sphenoid sinuses. Moderate mucosal thickening and fluid within the left maxillary sinus. The mastoid air cells and middle ear cavities are clear. The calvarium is intact. IMPRESSION: Mild cerebral atrophy with moderate cerebellar atrophy. Postsurgical changes involving the sella with expansion of the sella. Soft tissue along the lateral margins of the sella may relate to residual tumor versus the vasculature within the cavernous sinuses. Significant paranasal sinus disease, as above. Given some layering fluid, acute sinusitis should be considered. Dictated by: Dictated on workstation # [id number] Dict: 01/04/231923 Trans: 01/04/231945 [facility] [id number] Interpreted by: SEGUNDO LYNN MD Electronically signed by: SEGUNDO LYNN MD 01/04/231945 Assessment/Plan Admission Diagnosis NSTEMI Admission Status: Inpatient Order (span 2 midnights) Reason for Inpatient Admission: see below Assessment and Plan NSTEMI New systolic murmur sinus tachycardia Troponin trended up Plan for cardiac cath today Echo ordered Telemetry Cardiology consulted, appreciate recs CTA ordered to evaluate for PE- on therapeutic lovenox already Discussed with Dr Belcher AMS- resolved Fever- resoled Resolved CT head negative, CXR negative, UA not indicative of infection Not consistent with meningitis Will stress dose steroids Did have mild leukocytosis of 14 but just after vomiting so likely reactive, repeat today Rapid strep negative last night LANETTE- resolved Dehydration Lactic elevated on arrival but resolved Creatinine elevated and spec grav .1.030 with 3+ ketones in urine Continue IVF h/o pituitary adenoma and resection hypothyroidism Continue home synthroid Stress dose steroids DVT ppx: Lovenox as above KEN PATHAK MD January 05, 2023 09:22
--- NOTE | 2023-01-05 10:14 | Cardiac Cath Report ---
Cardiac Cath Report Physician (s)/Wheel Borer (s) Physician ALBERTO TOUSSAINT MD Pre-Procedure Diagnosis Pre-Procedure Diagnosis: NSTMI Post-Procedure Note Procedure Start Date: January 05, 2023 Name of Procedure: Left heart catheterization IFR to the circumflex artery IFR to the LAD Findings/Procedure Note PROCEDURE NOTE: 57-year-old gentleman with history of pituitary tumor, admitted with change in mental status, noted to have elevation in troponin level. After explaining the procedure to the patient, all pros and cons were explained, all questions were answered. The patient signed the consent and then he was placed in the cardiac catheterization laboratory. Groin was prepped in SL fashion local anesthesia was used. 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 I decided to proceed with IFR, I used Km left guide 3.5, I had significant difficulty engaging the left system, I advanced IFR wire to the circumflex artery and the IFR through the OM was 0.93. Then I redirected in the LAD and it was 0.84. There was no distinct lesion noted in the LAD. During pullback there was a gradual increase in the pressure and improvement in the gradient. There is moderate diffuse disease that accumulated into significant IFR gradient. I advanced EBU guide and engaged the left system and really did angiogram to the left system and evaluated the LAD it has moderate diffuse disease. At the end of the procedure the sheath was removed. Vascular band was used FINDINGS: Hemodynamics LV 118/11, end-diastolic pressure of 11 Aorta 102/70 mean of 70 IFR to the obtuse marginal branch 0.93 IFR to the LAD was 0.84 ANATOMY: Left Main is free of obstructive disease Left Anterior Descending has diffuse proximal to moderate disease with IFR 0.84 which is significant gradient, during pullback there is continuous gradual improvement. There is no distinct lesion in the LAD. Left Circumflex is moderate in size. 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 Moderate stenosis in the first obtuse marginal branch. 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 Dominant artery with no obstructive disease Normal left ventricular end-diastolic pressure DISCUSSION AND RECOMMENDATION: Patient has significant coronary artery disease, it is diffuse disease. Maximizing medical therapy is recommended no intervention is warranted Anesthesia Type: Conscious Sedation Estimated blood loss (mL): 20 ml Contrast Amount: 135 ml Total Radiation Dose: 840 mGy Post-Procedure Diagnosis Post-operative diagnosis: Non-ST elevation myocardial infarction Coronary artery disease Change in mental status Pituitary tumor ALBERTO TOUSSAINT MD January 05, 2023 10:14
[2023-01-05] MEDS: HYDROCORTISONE 100 MG/2 ML (Solu-CORTEF) VIAL IV SCH ×3 (11:05→21:31)
[2023-01-05 11:24] LABS: HEMATOCRIT 42 % (40-54); HEMOGLOBIN 14.3 g/dL (13.3-17.7); MEAN CORPUSCULAR HEMOGLOBIN 29 pg (25-34); MEAN CORPUSCULAR HGB CONC 34 g/dL (32-36); MEAN CORPUSCULAR VOLUME 85 fL (80-99); MEAN PLATELET VOLUME 9.7 fL (9.0-12.2); PLATELET COUNT 240 10^3/uL (130-400); WHITE BLOOD COUNT 10.1 10^3/uL (4.3-11.0)
[2023-01-05] MEDS ORDERED: FERR325T18 PO (11:25)
[2023-01-05] MEDS ORDERED: [UNRECOGNIZED DRUG - CODE] PO (11:25)
[2023-01-05] MEDS ORDERED: TEST60GE2 TD (11:25)
[2023-01-05] MEDS ORDERED: HYDR25SU8 RC (11:25)
[2023-01-05] MEDS ORDERED: LEVO125C4 PO (11:25)
[2023-01-05] MEDS ORDERED: cefTRIAXone IV/IM 1,000 MG in NS (IVPB) 50 ML IV SCH (12:00)
[2023-01-05] MEDS ORDERED: ERGO1250 PO (13:53)
[2023-01-06] VITALS: BP 132/90
[2023-01-06 04:00] VITALS: BP 117/73
[2023-01-06] MEDS: LEVOTHYROXINE 125 MCG (LEVOTHROID) TABLET PO SCH (05:57)
[2023-01-06] MEDS: HYDROCORTISONE 100 MG/2 ML (Solu-CORTEF) VIAL IV SCH (05:57)
[2023-01-06] MEDS: CATHETER FLUSH 10 ML SYR IVP SCH (05:58)
[2023-01-06] MEDS: NS IV 1000 ML 1,000 ML IV SCH (05:58)
[2023-01-06] MEDS ORDERED: CALCIUM CARBONATE 500 MG (TUMS) TAB.CHEW PO PRN (06:15)
[2023-01-06 06:33] LABS: EOSINOPHILS % (AUTO) 0 % (0-10); HEMOGLOBIN 12.2 g/dL (13.3-17.7); MEAN CORPUSCULAR HEMOGLOBIN 29 pg (25-34); MEAN PLATELET VOLUME 9.5 fL (9.0-12.2)
[2023-01-06 06:35] LABS: BASOPHILS % (AUTO) 0 % (0-10); HEMATOCRIT 35 % (40-54); LYMPHOCYTES # (AUTO) 0.7 10^3/uL (1.0-4.0); LYMPHOCYTES % (AUTO) 8 % (12-44); MEAN CORPUSCULAR HGB CONC 35 g/dL (32-36); MEAN CORPUSCULAR VOLUME 84 fL (80-99); MONOCYTES # (AUTO) 0.5 10^3/uL (0.0-1.0); MONOCYTES % (AUTO) 7 % (0-12); NEUTROPHILS # (AUTO) 6.5 10^3/uL (1.8-7.8); NEUTROPHILS % (AUTO) 84 % (42-75); PLATELET COUNT 211 10^3/uL (130-400); WHITE BLOOD COUNT 7.7 10^3/uL (4.3-11.0)
[2023-01-06 06:44] LABS: ALBUMIN 3.6 GM/DL (3.2-4.5); POTASSIUM 3.8 MMOL/L (3.6-5.0)
[2023-01-06 06:46] LABS: CALCIUM 8.7 MG/DL (8.5-10.1)
[2023-01-06 06:47] LABS: TOTAL PROTEIN 6.4 GM/DL (6.4-8.2)
[2023-01-06 06:49] LABS: BILIRUBIN,TOTAL 0.4 MG/DL (0.1-1.0)
[2023-01-06 06:50] LABS: CREATININE SERUM 0.75 MG/DL (0.60-1.30)
[2023-01-06 08:00] VITALS: BP 141/84
[2023-01-06] MEDS: ENOXAPARIN 100 MG/1 ML (LOVENOX) SYR SC SCH (08:07)
[2023-01-06] MEDS: ASPIRIN E.C. 81 MG (ECOTRIN) TAB PO SCH (08:09)
[2023-01-06] MEDS ORDERED: IOHEXOL 350 MG/ML 100 ML (OMNIPAQUE 350) VIAL IV ONE (09:00)
[2023-01-06] MEDS ORDERED: NS 100 ML (IVPB) BAG IV ONE (09:00)
[2023-01-06] MEDS ORDERED: HOLD METFORMIN - RECEIVED CONTRAST 20 ML VIAL IV SCH (09:00)
--- NOTE | 2023-01-06 09:40 | Cardiology Progress Note ---
Subjective Date Seen by Provider: January 06, 2023 Time Seen by Provider: 09:39 Subjective/Events-last exam Patient was seen at bedside, sitting comfortably, on his way for CT scan Review of Systems General: No Chills, No Night Sweats, No Fatigue, No Malaise, No Appetite, No Other HEENT: No Head Aches, No Visual Changes, No Eye Pain, No Ear Pain, No Dysphasia, No Sinus Congestion, No Post Nasal Drip, No Sore Throat, No Other Pulmonary: No Dyspnea, No Cough, No Pleuritic Chest Pain, No Other Cardiovascular: No: Chest Pain, Palpitations, Orthopnea, Paroxysmal Noc. Dyspnea, Edema, Lt Headedness, Other Focused Exam Lactate Level 01/04/23 16:54: Lactic Acid Level 2.88*H 01/04/23 20:03: Lactic Acid Level 1.95 Objective-Cardiology Exam Last Set of Vital Signs Vital Signs 01/04/23 01/05/23 01/06/23 01/06/23 21:39 21:24 08:00 08:23 Temp 36.7 Pulse 92 Resp 21 B/P (MAP) 141/84 (103) Pulse Ox 98 O2 Delivery Room Air O2 Flow Rate 0.00 FiO2 21 I&O Intake and Output 01/06/23 00:00 Intake Total 2600 ml Output Total 1250 ml Balance 1350 ml Intake Oral 850 ml IV Total 1750 ml Output Urine Total 1250 ml # Bowel Movements 1 General: Alert, Oriented X3, Cooperative HEENT: Atraumatic, PERRLA Neck: Supple, No JVD, No Thyromegaly Lungs: Clear to Auscultation, Normal Air Movement Heart: Regular Rate, Normal S1, Normal S2, No Murmurs Abdomen: Normal Bowel Sounds, Soft, No Tenderness, No Hepatosplenomegaly, No Masses Extremities: No Clubbing, No Cyanosis, No Edema, Normal Pulses, No Tenderness/Swelling Skin: No Rashes, No Breakdown, No Significant Lesion Neuro: Normal Gait, Normal Speech, Strength at 5/5 X4 Ext, Normal Tone, Sensation Intact Psych/Mental Status: Mental Status NL, Mood NL Results Lab Laboratory Tests 01/06/23 06:26 A/P-Cardiology Admission Diagnosis Non-ST elevation myocardial infarction Coronary artery disease Sinus tachycardia Pituitary tumor Assessment/Plan Non-ST elevation myocardial infarction, no acute EKG changes, persistent elevation in troponin trending upward. Cardiac catheterization carried out on January 05, 2023 showing mild to moderate disease in the LAD and obtuse marginal branch, nonobstructive disease Sinus tachycardia, could be underlying sepsis Patient had a CT scan of the chest scheduled for today Systolic murmur on the left sternal border, no previous cardiac history. 2D echo did not show any acute abnormality Lactic acidosis, questionable underlying sepsis. Managed by medical team Change in mental status, confusion. Patient does not recall the event well. Currently back to baseline History of pituitary tumor, had resection done 2 years ago at . Maintained on prednisone History of hypothyroidism, maintained on thyroid replacement ALBERTO TOUSSAINT MD January 06, 2023 09:40
--- NOTE | 2023-01-06 09:58 | Diagnostic Imaging Report ---
PROCEDURE: CT angiography of the chest with contrast. TECHNIQUE: Multiple contiguous axial images were obtained through the chest after uneventful bolus administration of intravenous contrast. 3D reconstructed CTA MIP acquisitions were also performed. Auto Exposure Controls were utilized during the CT exam to meet ALARA standards for radiation dose reduction. INDICATION: Chest pain after cardiac catheterization. Thoracic and abdominal aorta demonstrates normal caliber without evidence of intimal abnormality. No aneurysm or stenosis is seen. There is no evidence of mediastinal or abdominal retroperitoneal hematoma. Lungs are also clear without evidence of infiltrate or hematoma. There is no pneumothorax. No significant pleural or pericardial fluid is seen. There is a normal three-vessel branching pattern arising from the aortic arch. No focal hepatic, gallbladder, pancreatic, adrenal gland or splenic abnormality is identified and kidneys are unremarkable with normal perfusion. There is increased density present within the left upper quadrant mesentery with occasional mildly prominent lymph nodes in this region. This could indicate mesenteritis of indeterminate age. IMPRESSION: No evidence of acute abnormality in the thorax or abdomen. Great vessels of the thorax are unremarkable without evidence of complication. There is increased density in the left upper quadrant mesentery possibility of mesenteritis of indeterminate chronicity is not excluded. Dictated by: Dictated on workstation # [id number]
[2023-01-06] MEDS ORDERED: DOXY100C5 PO (11:30)
[2023-01-06 12:00] VITALS: BP 133/85
--- NOTE | 2023-01-06 13:18 | Discharge Summary ---
[facility] 01/06/23 1318: Diagnosis/Chief Complaint Date of Admission January 04, 2023 at 20:48 Date of Discharge Discharge Date: January 06, 2023 Admission Diagnosis NSTEMI Primary Care Elian Mahmood MD Discharge Diagnosis Acute Bacterial Sinusitis Discharge Summary Discharge Physical Exam Allergies: Coded Allergies: No Known Drug Allergies (Unverified , 03/29/14) Vitals & I&Os Vital Signs Date Time Temp Pulse Resp B/P (MAP) Pulse Ox O2 Delivery O2 Flow Rate FiO2 01/06/23 12:10 96 01/06/23 12:00 36.7 19 133/85 (101) 99 Room Air 01/05/23 21:24 0.00 01/04/23 21:39 21 General Appearance: No Apparent Distress, WD/WN HEENT: PERRL/EOMI, Pharynx Normal, Moist Mucous Membranes, Other (No sinus tenderness to palpation, no cervical lymphadenopathy) Respiratory: Chest Non Tender, Lungs Clear, Normal Breath Sounds, No Respir atory Distress Cardiovascular: Regular Rate, Rhythm, Systolic Murmur Gastrointestinal: Non Tender, Soft Extremity: Normal Capillary Refill, Non Tender, No Pedal Edema Skin: Normal Color, Warm/Dry Neurologic/Psychiatric: Alert, Oriented x3, Normal Mood/Affect Hospital Course Was the Problem List Reviewed?: Yes Patient is a 57-year-old male with past medical history of pituitary adenoma status post resection and secondary hypothyroidism who presented to the emergency department 01/04 due to altered mental status vomiting and new murmur. His symptoms started 01/01 with sore throat and he had poor oral intake, noticed decreased urinary output. Pt went to a walk-in clinic at [facility] for evaluation. He vomited there and became very confused. The nurse practitioner at [facility] listened to him and noticed a systolic murmur which they report is new. He was sent to the emergency department for evaluation. He was also found to be hypoglycemic with a blood sugar of 59. EMS gave him dextrose in route. He was found to have an elevated troponin of 0.557 and exam again revealed this new systolic murmur. He was admitted for cardiac evaluation. He was found as well to have an LANETTE and lactic acidosis presumably from dehydration. He was given IV fluids overnight and LANETTE improved. Repeat troponin on 01/05 was .699. Patient was taken for cardiac catheterization by Dr. Belcher and was found to have mild to moderate disease in the LAD and obtuse marginal branch, nonobstructive disease. CT head revealed significant paranasal sinus disease with layering fluid. Patient is feeling overall improved and no longer confused, does still report a sore throat and nasal drainage as well as mild cough. Reports he has had trouble sleeping since being in the hospital. Labs (last 24 hrs) Laboratory Tests 01/06/23 00:04: Glucometer 179H 01/06/23 06:26: White Blood Count 7.7, Red Blood Count 4.18L, Hemoglobin 12.2L, Hematocrit 35L, Mean Corpuscular Volume 84, Mean Corpuscular Hemoglobin 29, Mean Corpuscular Hemoglobin Concent 35, Red Cell Distribution Width 12.3, Platelet Count 211, Mean Platelet Volume 9.5, Immature Granulocyte % (Auto) 1, Neutrophils (%) (Auto) 84H, Lymphocytes (%) (Auto) 8L, Monocytes (%) (Auto) 7, Eosinophils (%) (Auto) 0, Basophils (%) (Auto) 0, Neutrophils # (Auto) 6.5, Lymphocytes # (Auto) 0.7L, Monocytes # (Auto) 0.5, Eosinophils # (Auto) 0.0, Basophils # (Auto) 0.0, Immature Granulocyte # (Auto) 0.0, Percent Immature Platelet Fraction 2.6, Sodium Level 135, Potassium Level 3.8, Chloride Level 108H, Carbon Dioxide Level 16L, Anion Gap 11, Blood Urea Nitrogen 11, Creatinine 0.75, Estimat Glomerular Filtration Rate 107, BUN/Creatinine Ratio 15, Glucose Level 144H, Calcium Level 8.7, Corrected Calcium 9.0, Total Bilirubin 0.4, Aspartate Amino Transf (AST/SGOT) 19, Alanine Aminotransferase (ALT/SGPT) 10, Alkaline Phosphatase 50, Total Protein 6.4, Albumin 3.6 Microbiology 01/04/23 Blood Culture - Preliminary, Resulted Probable Coag Negative Staph See Comments 01/04/23 Urine Culture - Final, Complete NO GROWTH 01/04/23 Throat Culture - Preliminary, Resulted No Beta Strep isolated Patient resulted labs reviewed. Pending Labs Laboratory Tests 01/06/23 06:26: White Blood Count 7.7, Red Blood Count 4.18, Hemoglobin 12.2, Hematocrit 35, Mean Corpuscular Volume 84, Mean Corpuscular Hemoglobin 29, Mean Corpuscular Hemoglobin Concent 35, Red Cell Distribution Width 12.3, Platelet Count 211, Mean Platelet Volume 9.5, Immature Granulocyte % (Auto) 1, Neutrophils (%) (Auto) 84, Lymphocytes (%) (Auto) 8, Monocytes (%) (Auto) 7, Eosinophils (%) (Auto) 0, Basophils (%) (Auto) 0, Neutrophils # (Auto) 6.5, Lymphocytes # (Auto) 0.7, Monocytes # (Auto) 0.5, Eosinophils # (Auto) 0.0, Basophils # (Auto) 0.0, Immature Granulocyte # (Auto) 0.0, Percent Immature Platelet Fraction 2.6, Sodium Level 135, Potassium Level 3.8, Chloride Level 108, Carbon Dioxide Level 16, Anion Gap 11, Blood Urea Nitrogen 11, Creatinine 0.75, Estimat Glomerular Filtration Rate 107, BUN/Creatinine Ratio 15, Glucose Level 144, Calcium Level 8.7, Corrected Calcium 9.0, Total Bilirubin 0.4, Aspartate Amino Transf (AST/SGOT) 19, Alanine Aminotransferase (ALT/SGPT) 10, Alkaline Phosphatase 50, Total Protein 6.4, Albumin 3.6 Imaging: Reviewed Imaging Report Discussion & Recommendations Discharge Planning: <30 minutes discharge planning NSTEMI New systolic murmur Troponin trended up, .557 to .699 Cardiac cath 01/05 with mild to moderate disease in the LAD and obtuse marginal branch, nonobstructive disease 2D echo did not show any acute abnormality Dr. Belcher following patient Acute bacterial sinusitis Fever- resolved WBC 7.[address] head with paranasal sinus disease Along with pt symptoms of sore throat and drainage, likely acute sinusitis Doxycycline x7days AMS- resolved, back to baseline LANETTE- resolved Dehydration Lactic elevated on arrival but resolved Creatinine elevation resolved H/o pituitary adenoma and resection Hypothyroidism Continue home synthroid Stress dose steroids Has appointment with nailer machine in June, encouraged him to ask for sooner appointment Discharge Home Medications: Active Scripts Active Doxycycline Hyclate 100 Mg Capsule 100 Mg PO BID 7 Days Vitamin D2 (Ergocalciferol (Vitamin D2)) 1,250 Mcg (07634 Unit) Capsule 1,250 Mcg PO ONCE 8 Days TAKES ONE TAB WEEKLY Anucort-Hc (Hydrocortisone Acetate) 25 Mg Supp.rect 25 Mg RC DAILY PRN 30 Days Testosterone 10 Mg (2%) Gel.parts room clerk 60 Gm TD DAILY 7 Days 1.62% TESTOSTERONE 1 APPLICATION DAILY prednisoLONE 5 Mg Tablet 5 Mg PO DAILY 30 Days Ferrous Sulfate 325 Mg (65 Mg Iron) Tablet 325 Mg PO DAILY 30 Days Levothyroxine (Levothyroxine Sodium) 125 Mcg Capsule 125 Mcg PO DAILY 30 Days Instructions to patient/family Please see electronic discharge instructions given to patient. Copy Copies To 1: ELIAN MAHMOOD MD, JARIN M MD 01/06/23 1618: Diagnosis/Chief Complaint Discharge Time: 12:00 Discharge Diagnosis (1) NSTEMI (non-ST elevated myocardial infarction) Status: Acute (2) Systolic murmur Status: Acute (3) Acute bacterial sinusitis Status: Acute (4) LANETTE (acute kidney injury) Status: Acute Discharge Summary Procedures/Consulations Cardiology-left heart cath Discharge Physical Exam Allergies: Coded Allergies: No Known Drug Allergies (Unverified , 03/29/14) Hospital Course NSTEMI CAD Cardiology consulted Left heart cath with nonobstructive CAD, no intervention required Follow up with Dr. Belcher as scheduled Acute bacterial sinusitis Doxycycline Stress dose steroids given LANETTE IV fluids, resolved Imaging: Reviewed Imaging Report Discussion & Recommendations Discharge Planning: >30 minutes discharge planning Discharge Condition at discharge Stable, Improved Copy Copies To 1: ELIAN MAHMOOD MD Supervisory-Addendum Brief Verification & Attestation Participated in pt care: history, MDM, physical Personally performed: exam, history, MDM, supervision of care Care discussed with: Medical Student Procedures: n/a A medical student performed and documented this service in my presence. I reviewed and verified all information documented by the medical student and made modifications to such information, when appropriate. I personally performed the physical exam and medical decision making. ANA LILIA CARBAJAL January 06, 2023 13:18 RICKI LOPEZ MD January 06, 2023 16:18
== END 2023-01-06 14:07 | disposition home or self-care (01) | DRG 281 ==
LOC: EDUNIT# 16:47 → ER 16:48 → CSD 20:48
PROVIDERS: ADMIT Family Medicine; ATTEND Internal Medicine
PROC: 4A023N7 Measurement of Cardiac Sampling and Pressure, Left Heart, Percutaneous Approach (ICD-10-PCS; principal; 2023-01-05)
PROC: B2111ZZ Fluoroscopy of Multiple Coronary Arteries using Low Osmolar Contrast (ICD-10-PCS; 2023-01-05)
PROC: 4A033BC Measurement of Arterial Pressure, Coronary, Percutaneous Approach (ICD-10-PCS; 2023-01-05)
DX: I21.4 Non-ST elevation (NSTEMI) myocardial infarction (principal); E87.20 Acidosis, unspecified; N17.9 Acute kidney failure, unspecified; I25.10 Atherosclerotic heart disease of native coronary artery without angina pectoris; J01.40 Acute pansinusitis, unspecified; B96.89 Other specified bacterial agents as the cause of diseases classified elsewhere; R00.0 Tachycardia, unspecified; R73.9 Hyperglycemia, unspecified; E89.0 Postprocedural hypothyroidism; R01.1 Cardiac murmur, unspecified; R41.0 Disorientation, unspecified; E86.0 Dehydration; H54.7 Unspecified visual loss; Z20.822 Contact with and (suspected) exposure to COVID-19; Z86.39 Personal history of other endocrine, nutritional and metabolic disease
CPT/HCPCS: 36415; 51702; 70450; 71045; 71275; 80048; 80053; 80306; 80320; 81000; 82947; 83605; 83735; 83880; 84439; 84443; 84484; 85025; 85027; 85610; 85730; 86141; 87040; 87088; 87430; 87636; 93005; 93041; 93306; 93308; 93458